=== PATIENT | female | born 1975 | race Caucasian/White ===

== ENCOUNTER 2016-11-08 13:28 | Emergency (ER) | payer SELFPAY ==
--- NOTE | 2016-11-08 13:39 | EDPHY ---
H & P Stated Complaint: R temporal h/a similiar to previous migraines;nausea has subsided HPI/ROS: HPI CHIEF COMPLAINT: Headache HISTORY OF PRESENT ILLNESS: This patient very pleasant 41-year-old female she does have significant past medical history for headaches, does not take any daily medications, presents emergency room with a left-sided throbbing headache. Also has left lateral neck pain with this throbbing headache. She states she has had migraine headaches in the past this is somewhat different this setting that involves her neck. She denies stiff neck, fever, meningeal signs. Denies double vision blurry vision or loss of vision. Denies chest pain or shortness of breath. Describes her headache is left-sided throbbing 6/ 10. Has nausea present. She denies focal weakness numbness or tingling. Past Medical History: Headaches, migraine Past Surgical History: Denies recent surgical history Social History: Denies daily use of drugs alcohol tobacco products, lives locally in [place] Family History: Noncontributory ROS REVIEW OF SYSTEMS: A comprehensive 10 point review of systems is otherwise negative aside from elements mentioned in the history of present illness. Exam Constitutional triage nursing summary reviewed, vital signs reviewed, awake/ alert. Eyes normal conjunctivae and sclera, EOMI, PERRLA. HENT the neck is supple, soft, no midline tenderness, no meningeal signs, normal inspection, atraumatic, moist mucus membranes, no epistaxis, neck supple / no meningismus, no raccoon eyes. Respiratory clear to auscultation bilaterally, normal breath sounds, no respiratory distress, no wheezing. Cardiovascular rate normal, regular rhythm, no murmur, no edema, distal pulses normal. Gastrointestinal soft, non-tender, no rebound, no guarding, normal bowel sounds, no distension, no pulsatile mass. Genitourinary no CVA tenderness. Musculoskeletal no midline vertebral tenderness, full range of motion, no calf swelling, no tenderness of extremities, no meningismus, good pulses, neurovascularly intact. Skin pink, warm, & dry, no rash, skin atraumatic. Neurologic awake, alert and oriented x 3, AAOx3, moves all 4 extremities equally, motor intact, sensory intact, CN II-XII intact, normal cerebellar, normal vision, normal speech. Psychiatric normal mood/affect. Heme/Lymph/Immune no lymphadenopathy. Differential Diagnosis: Includes but is not limited to in a particular order, migraine headache, cluster headache, tension headache, intracranial mass, electrolyte disturbance, dehydration, doubt meningitis Medical Decision Making: Plan for this patient IV establishment, IV fluid bolus , abortive migraine cocktail, do never having imaging of her head and in the emergency room the headache she will have a CT head without contrast rule out tumor. Re-evaluation: CT scan of the headache without IV contrast. The results of the study are negative for acute intracranial abnormality The study was read by Dr. Elder I viewed the images myself on the PACS system. 1456: Re-examination at this time patient is resting comfortably. No acute distress. Nonfocal neurological exam. Patient feels much better after migraine cocktail. CT head reviewed unremarkable. Normal neurological exam blood work unremarkable CT. Vital signs stable. Patient feels 100% better headache is completely resolved with migraine cocktail. She understands return emergency room she has any worsening symptoms questions or concerns. This includes worsening headache, fever, vomiting. Prescription for Fioricet. Source: Patient - Personal History LMP (Females 10-55): 22-28 Days Ago Current Tetanus Diphtheria and Acellular Pertussis (TDAP): Yes - Medical/Surgical History Other PMH: migraines - Social History Smoking Status: Never smoked Constitutional: Initial Vital Signs Temperature (C) 36.9 C 11/08/16 13:31 Heart Rate 76 11/08/16 13:31 Respiratory Rate 16 11/08/16 13:31 Blood Pressure 143/76 H 11/08/16 13:31 O2 Sat (%) 98 11/08/16 13:31 O2 Delivery Mode Room Air Allergies/Adverse Reactions: No Known Allergies Allergy (Verified 11/08/16 13:30) Home Medications: Medication Instructions Recorded NO HOME MEDS 05/30/13 Butal/Asp/Caffeine-Fiorinal 1 each PO Q6 #10 cap 11/08/16 [Fiorinal 50-325-40 mg Cap (RX)] Medical Decision Making - Diagnostics Imaging Results: Imaging Impressions Head CT 11/08/16 13:43 Impression: 1. No acute intracranial findings. 2. Sinus disease with equivocal ethmoid sinusitis and a 2 cm right maxillary polyp/mucous retention cyst. Findings discussed with Ravi Rendon M.D. on 11/08/2016 at 1418 hours. - Data Points Laboratory Results: Laboratory Results 11/08/16 13:55 11/08/16 13:55 11/08/16 11/08/16 13:55 13:55 WBC 6.45 10^3/uL 10^3/uL (3.80-9.50) RBC 4.72 10^6/uL 10^6/uL (4.18-5.33) Hgb 14.7 g/dL g/dL (12.6-16.3) Hct 42.6 % % (38.0-47.0) MCV 90.3 fL fL (81.5-99.8) MCH 31.1 pg pg (27.9-34.1) MCHC 34.5 g/dL g/dL (32.4-36.7) RDW 12.8 % % (11.5-15.2) Plt Count 222 10^3/uL 10^3/uL (150-400) MPV 9.8 fL fL (8.7-11.7) Neut % (Auto) Not Reported Lymph % (Auto) Not Reported Rock % (Auto) Not Reported Eos % (Auto) Not Reported Baso % (Auto) Not Reported Nucleat RBC Rel Count 0.0 % % (0.0-0.2) Absolute Neuts (auto) Not Reported Absolute Lymphs (auto) Not Reported Absolute Monos (auto) Not Reported Absolute Eos (auto) Not Reported Absolute Basos (auto) Not Reported Absolute Nucleated RBC 0.00 10^3/uL 10^3/uL (0-0.01) Immature Gran % Not Reported Seg Neutrophils % 43 % % Band Neutrophils % 2 % % Lymphocytes % 49 % % Monocytes % 5 % % Eosinophils % 1 % % Immature Gran # Not Reported Absolute Seg Neuts 2.77 10^/uL 10^/uL (1.70-6.50) Absolute Band Neuts 0.13 10^3/uL 10^3/uL (0.00-0.70) Absolute Lymphocytes 3.16 10^3/uL H 10^3/uL (1.00-3.00) Absolute Monocytes 0.32 10^3/uL 10^3/uL (0.30-0.80) Absolute Eosinophils 0.06 10^3/uL 10^3/uL (0.03-0.40) Atypical Lymphocytes 2+ H Platelet Estimate ADEQUATE (ADEQ) Smear Review By Pending Sodium 141 mEq/L mEq/L (134-144) Potassium 3.8 mEq/L mEq/L (3.5-5.2) Chloride 108 mEq/L mEq/L (97-110) Carbon Dioxide 22 mEq/l mEq/l (22-31) Anion Gap 11 mEq/L mEq/L (8-16) BUN 9 mg/dL mg/dL (7-23) Creatinine 0.6 mg/dL mg/dL (0.6-1.0) Estimated GFR > 60 Glucose 86 mg/dL mg/dL (70-100) Calcium 9.5 mg/dL mg/dL (8.5-10.4) Medications Given: Discontinued Medications Dexamethasone (Decadron Injection) 10 mg IVP EDNOW ONE Stop: 11/08/16 13:43 Last Admin: 11/08/16 13:55 Dose: 10 mg Diphenhydramine HCl (Benadryl Injection) 25 mg IVP EDNOW ONE Stop: 11/08/16 13:43 Last Admin: 11/08/16 13:56 Dose: 25 mg Sodium Chloride (Ns) 1,000 mls @ 0 mls/hr IV ONCE ONE PRN Reason: Wide Open Stop: 11/08/16 13:43 Last Admin: 11/08/16 13:55 Dose: 1,000 mls Ketorolac Tromethamine (Toradol) 30 mg IVP EDNOW ONE Stop: 11/08/16 13:43 Last Admin: 11/08/16 13:57 Dose: 30 mg Metoclopramide HCl (Reglan Injection) 10 mg IVP EDNOW ONE Stop: 11/08/16 13:43 Last Admin: 11/08/16 13:58 Dose: 10 mg Departure - Departure Disposition: Home, Routine, Self-Care Clinical Impression: Headache Qualifiers: Headache type: unspecified Headache chronicity pattern: acute headache Intractability: not intractable Qualified Code(s): R51 - Headache Condition: Good Instructions: Acute Headache (ED) Additional Instructions: 1. Return emergency room if you have any worsening symptoms includes worsening headache, fever vomiting. 2. Please follow up with your primary care doctor 3. Take Fioricet if you have a headache. Referrals: [facility] [Other] - As per Instructions Prescriptions: Butal/Asp/Caffeine-Fiorinal [Fiorinal 50-325-40 mg Cap (RX)] 1 each PO Q6 #10 cap
[2016-11-08] MEDS ORDERED: NS 1,000 ML IV ONE (13:42)
[2016-11-08] MEDS ORDERED: DEXAMETHASONE 10 MG/ML VIAL IVP ONE (13:42)
[2016-11-08] MEDS ORDERED: KETOROLAC 30 MG/1 ML SDV IVP ONE (13:42)
[2016-11-08] MEDS ORDERED: METOCLOPRAMIDE 10 MG/2 ML VIAL IVP ONE (13:42)
[2016-11-08 14:12] LABS: ADD MORPH? NO; FRAGMENT RBC FLAG 0 (0-99); HEMATOCRIT 42.6 % (38.0-47.0); HEMOGLOBIN 14.7 g/dL (12.6-16.3); LEFT SHIFT FLG 0 (0-99); LIPEMIA HEMOLYSIS FLAG 90 (0-99); MEAN CELL HEMOGLOBIN 31.1 pg (27.9-34.1); MEAN CELL HEMOGLOBIN CONCENTR. 34.5 g/dL (32.4-36.7); MEAN CELL VOLUME 90.3 fL (81.5-99.8); MEAN PLATELET VOLUME 9.8 fL (8.7-11.7); PLATELET CLUMPS FLAG 20 (0-99); PLATELET COUNT 222 10^3/uL (150-400); RED BLOOD CELL COUNT 4.72 10^6/uL (4.18-5.33); RED CELL DISTRIBUTION WIDTH 12.8 % (11.5-15.2)
[2016-11-08 14:14] LABS: ATYPICAL LYMPHOCYTE FLAG 100 (0-99)
[2016-11-08 14:26] LABS: ANION GAP 11 mEq/L (8-16); CALCIUM 9.5 mg/dL (8.5-10.4); CARBON DIOXIDE 22 mEq/l (22-31); CHLORIDE 108 mEq/L (97-110); CREATININE 0.6 mg/dL (0.6-1.0); GLOMERULAR FILTRATION RATE > 60; GLUCOSE 86 mg/dL (70-100); POTASSIUM 3.8 mEq/L (3.5-5.2); SODIUM 141 mEq/L (134-144)
[2016-11-08 14:46] LABS: ADD DIFF? YES; ADD SCAN? NO; SCAN POSITIVE
[2016-11-08 14:51] LABS: PLATELET ESTIMATE ADEQUATE (ADEQ)
[2016-11-08 15:14] VITALS: BP 122/66; PULSE 63; RESP 18; TEMP 98.1; O2SAT 99
== END 2016-11-08 15:13 | disposition home or self-care (01) ==
DX: R51 Headache (principal)
CPT/HCPCS: 96374; J1200; J1885; J2765

== ENCOUNTER → 2018-12-12 | Outpatient (CLI) | payer OTHER | LOC: FIMAGING 08:45 ==